=== PATIENT | female | born 1995 | race Caucasian/White ===

== ENCOUNTER → 2021-01-09 | Outpatient (CLI) | payer OTHER | LOC: M LABSMTC 11:58 | PROVIDERS: ATTEND Family Medicine | DX: Z11.52 Encounter for screening for COVID-19 (principal) ==

== ENCOUNTER → 2021-02-21 | Outpatient (REF) | payer OTHER ==
[2021-02-21 15:59] LABS: HCG, SERUM QUALITATIVE POSITIVE (NEGATIVE)
== END ==
LOC: M PLALAB 14:28
PROVIDERS: ATTEND Nurse Practitioner Women's Health
DX: N91.2 Amenorrhea, unspecified (principal)

== ENCOUNTER 2021-04-03 11:03 | Emergency (ER) | payer OTHER ==
[~2021-04-03] VITALS: Ht 175.3 cm; Wt 72.0 kg
[2021-04-03] MEDS ORDERED: MULTTAB20 PO (11:13)
[2021-04-03 12:27] LABS: BASO % 0.5 % (0.0-1.0); EOS # 0.1 10^3/uL (0.0-0.5); HEMATOCRIT 38.6 % (36.0-47.0); HEMOGLOBIN 13.2 g/dl (12.0-15.5); LYMPH # 0.9 10^3/uL (1.5-5.0); LYMPH % 15.6 % (24.0-44.0); MEAN CORPUSCULAR HEMOGLOBIN 30.8 pg (27.0-33.0); MEAN CORPUSCULAR HGB CONC 34.2 g/dl (32.0-36.5); MEAN CORPUSCULAR VOLUME 90.2 fl (80.0-96.0); MONO # 0.6 10^3/uL (0.0-0.8); MONO % 10.1 % (2.0-8.0); NEUTROPHILS # 4.3 10^3/uL (1.5-8.5); NEUTROPHILS % 72.5 % (36.0-66.0); PLATELET COUNT, AUTOMATED 249 10^3/uL (150-450); RED BLOOD COUNT 4.28 10^6/uL (4.00-5.40)
[2021-04-03 13:06] LABS: BLOOD UREA NITROGEN 10 MG/DL (7-18); CALCIUM LEVEL 9.2 MG/DL (8.5-10.1); CARBON DIOXIDE LEVEL 24 MEQ/L (21-32); CHLORIDE LEVEL 107 MEQ/L (98-107); CREATININE FOR GFR 0.62 MG/DL (0.55-1.30); GLOMERULAR FILTRATION RATE > 60.0 (>60); GLUCOSE, FASTING 85 MG/DL (70-100); HCG, SERUM QUANTITATIVE 6144 MIU/ML; POTASSIUM SERUM 4.2 MEQ/L (3.5-5.1); SODIUM LEVEL 139 MEQ/L (136-145)
[2021-04-03 14:34] LABS: APPEARANCE, URINE CLEAR (CLEAR); BACTERIA, URINE AUTO NEGATIVE (NEGATIVE); BILIRUBIN, URINE AUTO NEGATIVE (NEGATIVE); BLOOD, URINE BLOOD 2+ (NEGATIVE); COLOR, URINE YELLOW (YELLOW); GLUCOSE, URINE (UA) AUTO NEGATIVE (NEGATIVE); KETONE, URINE AUTO 1+ mg/dL (NEGATIVE); LEUKOCYTE ESTERASE, URINE AUTO NEGATIVE (NEGATIVE); MUCUS, URINE SMALL (NEGATIVE); NITRITE, URINE AUTO NEGATIVE (NEGATIVE); PROTEIN, URINE AUTO NEGATIVE (NEGATIVE); RBC, URINE AUTO 1 /HPF (0-3); SPECIFIC GRAVITY URINE AUTO 1.012 (1.002-1.035); SQUAMOUS EPITHELIAL CELL UR AU 2 /HPF (0-6); UROBILINOGEN, URINE AUTO 0.2 mg/dL (0.0-2.0); WBC, URINE AUTO 2 /HPF (0-3)
--- NOTE | 2021-04-03 14:57 | REP ---
INDICATION: bleeding. COMPARISON: None. TECHNIQUE: Transabdominal and transvaginal scanning are performed. FINDINGS: Uterine dimensions are 9.3 x 5.0 x 7.2 cm. Uterus is considered slightly enlarged. 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 There is an intrauterine gestational sac in the right cornua or horn. By mean sac size diameter of 13.7 mm this would correspond with a 6 week 1 day gestational age estimate. There is a yolk sac visible in the intrauterine gestational sac but no visualized embryonic pole is seen. There is no evidence of free fluid. The left endometrial echo is 12 mm. The right ovary measures 3.2 x 2.0 x 3.0 cm. There is a 1.8 cm complex cyst in the right ovary. A normal left ovary is seen measuring 2.6 x 1.5 x 1.8 cm. IMPRESSION: Nonspecific findings. Intrauterine gestational sac at 6 weeks 1 day by mean sac size diameter. Embryonic pole not visualized. Yolk sac is seen. Clinical and possibly sonographic follow-up is advised. No free fluid or adnexal mass is observed. Possible bicornuate uterus. <Electronically signed by Murali Kaiser > 04/03/21 [id number]
[2021-04-03 15:37] VITALS: BP 113/72
[2021-04-03 16:06] LABS: GC DNA AMPLIFICATION NEGATIVE (NEGATIVE)
== END 2021-04-03 15:40 | disposition home or self-care (01) ==
LOC: M ED 11:03
DX: O20.0 Threatened abortion (principal); O36.80X0 Pregnancy with inconclusive fetal viability, not applicable or unspecified; Z3A.01 Less than 8 weeks gestation of pregnancy; Z91.040 Latex allergy status

== ENCOUNTER 2021-04-06 16:35 | Day surgery (SDC) | payer OTHER ==
[~2021-04-06] VITALS: Ht 175.3 cm; Wt 71.8 kg
[~2021-04-06 16:35] MED LIST: MULTTAB20 PO
[2021-04-06 17:42] LABS: RSV AMPLIFICATION NEGATIVE (NEGATIVE)
[2021-04-06 18:03] LABS: HEMATOCRIT 40.1 % (36.0-47.0); HEMOGLOBIN 13.7 g/dl (12.0-15.5); MEAN CORPUSCULAR HEMOGLOBIN 30.7 pg (27.0-33.0); MEAN CORPUSCULAR HGB CONC 34.2 g/dl (32.0-36.5); MEAN CORPUSCULAR VOLUME 89.9 fl (80.0-96.0); PLATELET COUNT, AUTOMATED 294 10^3/uL (150-450); RED BLOOD COUNT 4.46 10^6/uL (4.00-5.40)
[2021-04-06 18:53] LABS: BLOOD UREA NITROGEN 11 MG/DL (7-18); CARBON DIOXIDE LEVEL 25 MEQ/L (21-32); CHLORIDE LEVEL 106 MEQ/L (98-107); CREATININE FOR GFR 0.56 MG/DL (0.55-1.30); GLOMERULAR FILTRATION RATE > 60.0 (>60); GLUCOSE, FASTING 78 MG/DL (70-100); HCG, SERUM QUANTITATIVE 4628 MIU/ML; POTASSIUM SERUM 3.9 MEQ/L (3.5-5.1); SODIUM LEVEL 137 MEQ/L (136-145)
[2021-04-06] MEDS ORDERED: ACETAMINOPHEN 650 MG SUPP As Ordered ONE (18:59)
[2021-04-06] MEDS ORDERED: ONDANSETRON 4MG/2ML VIAL As Ordered ONE (19:56)
[2021-04-06] MEDS ORDERED: fentaNYL 100 MCG/2 ML INJECTION (J3010) As Ordered ONE (19:56)
[2021-04-06] MEDS ORDERED: propofoL 200 MG/20 ML VIAL As Ordered ONE (19:56)
[2021-04-06] MEDS ORDERED: KETOROLAC 60MG 2ML VIAL As Ordered ONE (19:56)
[2021-04-06] MEDS ORDERED: MIDAZOLAM INJ 2MG/2ML VIAL (J2250 PER 1MG) As Ordered ONE (19:56)
[2021-04-06] MEDS ORDERED: dexameTHASONE 4 MG/ML 1ML VIAL (J1100 PER 1MG) As Ordered ONE (19:56)
[2021-04-06] MEDS ORDERED: OXYTOCIN INJ 10 UNITS/ML VIAL (J2590) As Ordered ONE (19:56)
[2021-04-06] MEDS ORDERED: LIDOCAINE 2% 100MG/5ML SDV (FOR ANES.) As Ordered ONE (19:56)
[2021-04-06] MEDS ORDERED: fentaNYL 100 MCG/2 ML INJECTION (J3010) IV PRN (20:20)
[2021-04-06] MEDS ORDERED: oxyCODONE 5MG TAB PO PRN (20:20)
[2021-04-06] MEDS ORDERED: ONDANSETRON 4MG/2ML VIAL IV PRN (20:20)
[2021-04-06] MEDS ORDERED: LR 1,000 ML IV SCH (20:20)
[2021-04-06 21:08] VITALS: BP 117/64
[2021-04-07] MEDS ORDERED: UNRESOLVED CLARIFICATION ENTRY XX SCH (00:01)
--- NOTE | 2021-04-10 16:19 | RO ---
OPERATIVE NOTE DATE OF OPERATION: 04/06/2021 PREOPERATIVE DIAGNOSIS: Missed . POSTOPERATIVE DIAGNOSIS: Missed . OPERATION PROPOSED: Suction curettage. OPERATION PERFORMED: Suction curettage. ANESTHESIA: General. ESTIMATED BLOOD LOSS: Less than 25 mL. SURGEON: Dr. Enrike Donahue PROCEDURE IN DETAIL: After adequate time out, the patient was prepped and draped in the lithotomy position. Sequentials in place. No antibiotics required. Weighted speculum in the vagina. Bladder was drained for 200 mL of clear urine. Single-toothed tenaculum on the anterior lip of the cervix. There was some cervicouterine descent. The uterus sounded to a depth of 9 cm, dilated to a Hegar 9/10. Curved suction curette applied. Curettage until the cavity was smooth. Uterus was placed in an anatomical position, well-contracted under Pitocin. All instruments were removed. Instrument and pad count correct. The patient was sent to the recovery room in good condition. She is Rh positive and does not require RhoGAM.
== END 2021-04-06 21:30 | disposition home or self-care (01) ==
LOC: M ED 16:35 → M SDC 16:36 → M ED 18:35 → M SDC 21:30
PROVIDERS: ATTEND Obstetrics & Gynecology
DX: O02.1 Missed abortion (principal)
CPT/HCPCS: 59820; 80048; 84702; 85027; 86850; 86900; 86901; 87631; 88305; 99284; J1100; J1885; J2250; J2405; J2590; J3010

== ENCOUNTER 2021-10-23 06:20 | Day surgery (SDC) | payer OTHER ==
[~2021-10-23] VITALS: Ht 175.3 cm; Wt 73.5 kg
[~2021-10-23 06:20] MED LIST changes: +LR 1,000 ML IV ONE
[2021-10-23 06:57] LABS: HEMOGLOBIN 13.2 g/dl (12.0-15.5); MEAN CORPUSCULAR HEMOGLOBIN 30.2 pg (27.0-33.0); MEAN CORPUSCULAR HGB CONC 33.8 g/dl (32.0-36.5); MEAN CORPUSCULAR VOLUME 89.2 fl (80.0-96.0); PLATELET COUNT, AUTOMATED 274 10^3/uL (150-450); RED BLOOD COUNT 4.37 10^6/uL (4.00-5.40); WHITE BLOOD COUNT 8.3 10^3/uL (4.0-10.0)
[2021-10-23] MEDS ORDERED: KETOROLAC 60MG 2ML VIAL As Ordered ONE (07:01)
[2021-10-23] MEDS ORDERED: SUGAMMADEX SODIUM 500 MG/5 ML VIAL (BRIDION) As Ordered ONE (07:01)
[2021-10-23] MEDS ORDERED: fentaNYL 100 MCG/2 ML INJECTION (J3010) As Ordered ONE (07:01)
[2021-10-23] MEDS ORDERED: ACETAMINOPHEN 1000MG 100ML IV BTL (OFIRMEV) (J0131 PER 10MG) As Ordered ONE (07:01)
[2021-10-23] MEDS ORDERED: ROCURONIUM BROMIDE 50 MG/5 ML VIAL As Ordered ONE (07:01)
[2021-10-23] MEDS ORDERED: propofoL 200 MG/20 ML VIAL As Ordered ONE (07:01)
[2021-10-23] MEDS ORDERED: METOCLOPRAMIDE INJ 10MG/2ML VIAL (J2765 PER 1) As Ordered ONE (07:01)
[2021-10-23] MEDS ORDERED: ONDANSETRON 4MG/2ML VIAL As Ordered ONE (07:01)
[2021-10-23] MEDS ORDERED: dexameTHASONE 4 MG/ML 1ML VIAL (J1100 PER 1MG) As Ordered ONE (07:01)
[2021-10-23] MEDS ORDERED: LIDOCAINE 2% 100MG/5ML SDV (FOR ANES.) As Ordered ONE (07:01)
[2021-10-23] MEDS ORDERED: MIDAZOLAM INJ 2MG/2ML VIAL (J2250 PER 1MG) As Ordered ONE (07:02)
[2021-10-23 07:31] LABS: BLOOD UREA NITROGEN 22 MG/DL (7-18); CALCIUM LEVEL 8.8 MG/DL (8.5-10.1); CARBON DIOXIDE LEVEL 25 MEQ/L (21-32); CHLORIDE LEVEL 108 MEQ/L (98-107); CREATININE FOR GFR 0.72 MG/DL (0.55-1.30); GLOMERULAR FILTRATION RATE > 60.0 (>60); GLUCOSE, FASTING 90 MG/DL (70-100); HCG, SERUM QUANTITATIVE < 1.0 MIU/ML; POTASSIUM SERUM 4.6 MEQ/L (3.5-5.1); SODIUM LEVEL 139 MEQ/L (136-145)
[2021-10-23] MEDS: ACETAMINOPHEN 650 MG SUPP As Ordered ONE (07:40)
[2021-10-23] MEDS: BUPIVACAINE HCL 0.5% 10ML VIAL As Ordered ONE (08:04)
[2021-10-23] MEDS ORDERED: PERCOCET 5MG/325MG TAB PO PRN (09:10)
[2021-10-23] MEDS ORDERED: LR 1,000 ML IV SCH (09:10)
[2021-10-23] MEDS ORDERED: fentaNYL 100 MCG/2 ML INJECTION (J3010) IV PRN (09:10)
[2021-10-23] MEDS: ONDANSETRON 4MG/2ML VIAL IV PRN (09:18)
[2021-10-23 10:24] VITALS: BP 117/67
== END 2021-10-23 10:30 | disposition home or self-care (01) ==
LOC: M SDC 06:20
PROVIDERS: ATTEND Obstetrics & Gynecology
DX: Z30.2 Encounter for sterilization (principal); R06.83 Snoring; Z91.040 Latex allergy status

== ENCOUNTER 2022-10-10 11:14 | Day surgery (SDC) | payer OTHER ==
[~2022-10-10] VITALS: Ht 175.3 cm; Wt 70.9 kg
[~2022-10-10 11:14] MED LIST changes: -LR 1,000 ML IV ONE
[2022-10-10 11:56] LABS: HEMOGLOBIN 13.8 g/dl (12.0-15.5)
[2022-10-10] MEDS: LR 1,000 ML IV SCH ×2 (12:04→13:19)
[2022-10-10 12:41] LABS: HCG, SERUM QUALITATIVE NEGATIVE (NEGATIVE)
[2022-10-10] MEDS ORDERED: ONDANSETRON 4MG 2ML VIAL IV ONE (13:10)
[2022-10-10] MEDS ORDERED: SILVER NITRATE APPLICATOR (1 = QTY 10) As Ordered ONE (13:21)
[2022-10-10] MEDS ORDERED: ONDANSETRON 4MG 2ML VIAL As Ordered ONE (13:24)
[2022-10-10] MEDS ORDERED: KETOROLAC 60MG 2ML VIAL As Ordered ONE (13:24)
[2022-10-10] MEDS ORDERED: propofoL 200 MG/20 ML VIAL As Ordered ONE (13:24)
[2022-10-10] MEDS ORDERED: LIDOCAINE 2% 100MG/5ML SDV (FOR ANES.) As Ordered ONE (13:25)
[2022-10-10] MEDS ORDERED: LIDOCAINE W/EPINEPHRINE 1% 20ML VIAL As Ordered ONE (13:27)
[2022-10-10] MEDS ORDERED: ACETAMINOPHEN 1000MG 100ML IV BAG As Ordered ONE (13:42)
[2022-10-10] MEDS ORDERED: MIDAZOLAM INJ 2MG/2ML VIAL As Ordered ONE (13:57)
[2022-10-10] MEDS ORDERED: IODINE STRONG SOLN 15ML BTL As Ordered ONE (14:15)
[2022-10-10] MEDS ORDERED: ONDANSETRON 4MG 2ML VIAL IV PRN (15:05)
[2022-10-10] MEDS ORDERED: oxyCODONE 5MG TAB PO PRN (15:05)
[2022-10-10] MEDS ORDERED: fentaNYL 100 MCG/2 ML INJECTION IV PRN (15:05)
[2022-10-10] MEDS ORDERED: LR 1,000 ML IV SCH (15:05)
[2022-10-10] MEDS ORDERED: HYDROMORPHONE HCL 0.5 MG/ 0.5 ML SYRINGE IV PRN (15:05)
[2022-10-10 16:21] VITALS: BP 128/69
== END 2022-10-10 16:59 | disposition home or self-care (01) ==
LOC: M SDC 11:14
PROVIDERS: ATTEND Obstetrics & Gynecology
DX: R87.612 Low grade squamous intraepithelial lesion on cytologic smear of cervix (LGSIL) (principal); Z91.040 Latex allergy status; N88.8 Other specified noninflammatory disorders of cervix uteri
CPT/HCPCS: 36415; 57520; 84703; 85014; 85018; 86850; 86900; 86901; 88307; J0131; J1100; J1885; J2250; J2405